=== PATIENT | male | born 1970 | race Caucasian/White ===

== ENCOUNTER 2017-01-29 10:38 | Emergency (ER) | payer BC ==
[2017-01-29 11:33] VITALS: BP 126/85
--- NOTE | 2017-01-29 11:38 | UC ---
HPI Febrile Illness - HPI Summary HPI Summary: 46 YEAR OLD MALE PRESENTS WITH COMPLAINS OF FEVER. - History of Current Complaint Chief Complaint: UCGeneralIllness Time Seen by Provider: 01/29/17 11:36 Onset/Duration: Started Days Ago - 3 Timing: Intermittent Initial Severity: Mild Current Severity: Mild - Allergy/Home Medications Allergies/Adverse Reactions: Allergies Allergy/AdvReac Type Severity Reaction Status Date / Time No Known Allergies Allergy Verified 01/29/17 11:33 Home Medications: Home Medications Ibuprofen [Advil] 600 mg PO ONCE PRN 01/29/17 [History Confirmed 01/29/17] PMH/Surg Hx/FS Hx/Imm Hx - Surgical History Surgery Procedure, Year, and Place: Hand surgery Infectious Disease History: No Infectious Disease History: Denies: History Other Infectious Disease, Traveled Outside the [place] in Last 30 Days - Social History Alcohol Use: Rare Substance Use Type: Reports: Marijuana Substance Use Comment - Amount & Last Used: hx of opiod abuse Smoking Status (MU): Never Smoked Tobacco Review of Systems Constitutional: Negative Skin: Negative Eyes: Negative ENT: Negative Respiratory: Negative Cardiovascular: Negative Gastrointestinal: Negative Genitourinary: Negative Motor: Negative Neurovascular: Negative Musculoskeletal: Negative Neurological: Negative Psychological: Negative All Other Systems Reviewed And Are Negative: Yes Physical Exam Triage Information Reviewed: Yes Vital Signs: Initial Vital Signs Temp 37.3 C 01/29/17 11:28 Pulse 93 01/29/17 11:28 Resp 16 01/29/17 11:28 BP 126/85 01/29/17 11:28 Pulse Ox 99 01/29/17 11:28 Eye Exam: Normal ENT Exam: Normal Dental Exam: Normal Neck exam: Normal Neck: Positive: 1 Respiratory Exam: Normal Cardiovascular Exam: Normal Abdominal Exam: Normal Musculoskeletal Exam: Normal Neurological Exam: Normal Psychological Exam: Normal Skin Exam: Normal Course/Dx - Diagnoses Clinic Provider Diagnoses: FEVER Discharge - Discharge Plan Condition: Stable Disposition: HOME Patient Education Materials: Fever in Adults (ED) Referrals: No Primary Care Phys,NOPCP [Primary Care Provider] -
== END 2017-01-29 12:04 | disposition home or self-care (01) ==
LOC: UCEAST 10:38
DX: R50.9 Fever, unspecified (principal)
CPT/HCPCS: 99211; G0463

== ENCOUNTER 2017-01-29 12:25 | Emergency (ER) | payer BC ==
[2017-01-29] MEDS ORDERED: NS 0.9% 1000 ML* 2,000 ML IV ONE (14:35)
--- NOTE | 2017-01-29 15:03 | RAD ---
INDICATION: Fever. Chills. Pneumonia. COMPARISON: None TECHNIQUE: PA and lateral dual-energy views were obtained. FINDINGS: Bones/Soft Tissues: There are no acute bony findings. Cardiomediastinal: The cardiomediastinal silhouette is normal. Lungs: There are no infiltrates. Pleura: There are no pleural effusions. Other: None IMPRESSION: NORMAL CHEST.
[2017-01-29 15:14] LABS: Hematocrit 44 % (42-52); Hemoglobin 14.9 g/dl (14.0-18.0); Mean Corpuscular HGB Conc 34 g/dl (31-36); Mean Corpuscular Hemoglobin 30 pg (27-31); Mean Corpuscular Volume 88 fL (80-94); Mean Platelet Volume 10 um3 (7.4-10.4); Red Blood Count 4.97 10^6/ul (4.0-5.4); Red Cell Distribution Width 13 % (10.5-15); White Blood Count 4.8 10^3/ul (3.5-10.8)
[2017-01-29 15:31] LABS: BUN/Creatinine Ratio 11.7 (8-20); C Reactive Protein 77.76 mg/L (< 5.00); Calcium 9.3 mg/dL (8.6-10.3); EGFR Non-African American 77.7 (>60); Globulin 3.3 g/dL (2-4); Total Bilirubin 1.3 mg/dL (0.2-1.0); Total Protein 7.3 g/dL (6.4-8.9)
[2017-01-29 16:09] LABS: Erythrocyte Sed Rate 27 mm/Hr (0-14)
[2017-01-29 16:21] LABS: Urine Bilirubin Negative (Negative); Urine Glucose Negative (Negative); Urine Nitrite Negative (Negative)
[2017-01-29] MEDS ORDERED: DOXYcycline CAP(*) 100 MG PO ONE (17:10)
[2017-01-29 17:36] VITALS: BP 127/68
--- NOTE | 2017-01-29 21:47 | ED ---
Teresa Tinajero Alfonso, scribed for Van Almendarez MD on 01/29/17 at 1443 . Complex/Multi-Sys Presentation - HPI Summary HPI Summary: This patient is a 46 year old male presenting to [facility] c/o febrile illness since 3 days ago. He reports spending time outdoors and in the garden this last week. Sx aggravated by nothing and alleviated by Advil. He reports fatigue, insomnia, diaphoresis, chills, nausea, loss of appetite, arthralgia, headache secondary to cough, increased urinary frequency. He denies a rash, abdominal pain, flank pain, testicular pain, nasal congestion, sore throat, and sinus pressure. - History Of Current Complaint Chief Complaint: EDFever Time Seen by Provider: 01/29/17 14:23 Hx Obtained From: Patient, Family/Plant Assigner - Onset/Duration: Sudden Onset, Lasting Days - 3 days, Still Present Timing: Constant Severity Currently: Moderate Severity Initially: Moderate Aggravating Factor(s): Nothing Alleviating Factor(s): Advil Associated Signs And Symptoms: Positive: Fever, Other - Positive fatigue, insomnia, diaphoresis, chills, nausea, loss of appetite, arthralgia, headache secondary to cough, increased urinary frequency; Negative rash, abdominal pain, flank pain, testicular pain, nasal congestion, sore throat, and sinus pressure. - Allergies/Home Medications Allergies/Adverse Reactions: Allergies Allergy/AdvReac Type Severity Reaction Status Date / Time No Known Allergies Allergy Verified 01/29/17 11:33 PMH/Surg Hx/FS Hx/Imm Hx Opthamlomology History: Denies: Hx Legally Blind EENT History: Denies: Hx Deafness - Surgical History Surgery Procedure, Year, and Place: Hand surgery Infectious Disease History: No Infectious Disease History: Denies: History Other Infectious Disease, Traveled Outside the [place] in Last 30 Days - Family History Known Family History: Positive: Cardiac Disease, Other - Brain tumors - Social History Alcohol Use: Rare Substance Use Type: Reports: Marijuana Substance Use Comment - Amount & Last Used: hx of opiod abuse Smoking Status (MU): Former Smoker Review of Systems Positive: Fever, Chills, Fatigue, Skin Diaphoresis Positive: Other - Negative nasal congestion, and sinus pressure. Negative: Sore Throat Positive: Cough Positive: Nausea. Negative: Abdominal Pain Positive: frequency - Increased, other - Negative testicular pain, . Negative: flank pain Positive: Arthralgia Negative: Rash Neurological: Other - Positive loss of appetite, insomnia, Positive: Headache - secondary to cough Positive: Other All Other Systems Reviewed And Are Negative: Yes Physical Exam - Summary Physical Exam Summary: The patient is well-nourished in no acute distress and in no acute pain. The skin is warm and dry and skin color reflects adequate perfusion. Diaphoretic. Obese. HEENT: The head is normocephalic and atraumatic. The pupils are equal and reactive. The conjunctivae are clear and without drainage. Nares are patent and without drainage. Mouth reveals moist mucous membranes and the throat is without erythema and exudate. The external ears are intact. The ear canals are patent and without drainage. The tympanic membranes are intact. Neck is supple with full range of motion and non-tender. There are no carotid bruits. There is no neck vein distension. No nuchal rigidity. Respiratory: Chest is non-tender. Lungs are clear to auscultation and breath sounds are symmetrical and equal. Cardiovascular: Heart is tachycardic. There is no murmur or rub auscultated. There is no peripheral edema and pulses are symmetrical and equal. Abdomen: The abdomen is soft and non-tender. There are normal bowel sounds heard in all four quadrants and there is no organomegaly palpated. Musculoskeletal: There is no back pain noted. Extremities are non-tender with full range of motion. There is good capillary refill. There is no peripheral edema or calf tenderness elicited. Neurological: Patient is alert and oriented to person, place and time. The patient has symmetrical motor strength in all four extremities. Cranial nerves are grossly intact. Deep tendon reflexes are symmetrical and equal in all four extremities. Psychiatric: The patient has an appropriate affect and does not exhibit any anxiety or depression. Triage Information Reviewed: Yes Vital Signs On Initial Exam: Initial Vitals Temp Pulse Resp BP Pulse Ox 98.7 F 101 17 116/72 99 01/29/17 12:29 01/29/17 12:29 01/29/17 12:29 01/29/17 12:29 01/29/17 12:29 Vital Signs Reviewed: Yes - Emily Coma Scale Coma Scale Total: 15 Diagnostics - Vital Signs Vital Signs Temp Pulse Resp BP Pulse Ox 01/29/17 14:18 95 97 01/29/17 14:16 154/87 01/29/17 13:42 98.7 F 111 20 128/79 97 01/29/17 12:29 98.7 F 101 17 116/72 99 - Laboratory Lab Results: Lab Results 01/29/17 01/29/17 01/29/17 Range/Units 15:00 15:00 15:00 WBC 4.8 (3.5-10.8) 10^3/ul RBC 4.97 (4.0-5.4) 10^6/ul Hgb 14.9 (14.0-18.0) g/dl Hct 44 (42-52) % MCV 88 (80-94) fL MCH 30 (27-31) pg MCHC 34 (31-36) g/dl RDW 13 (10.5-15) % Plt Count 119 L (150-450) 10^3/ul MPV 10 (7.4-10.4) um3 Neut % (Auto) 80.3 (38-83) % Lymph % (Auto) 8.0 L (25-47) % [place] % (Auto) 11.3 H (1-9) % Eos % (Auto) 0 (0-6) % Baso % (Auto) 0.4 (0-2) % Absolute Neuts (auto) 3.9 (1.5-7.7) 10^3/ul Absolute Lymphs (auto) 0.4 L (1.0-4.8) 10^3/ul Absolute Monos (auto) 0.5 (0-0.8) 10^3/ul Absolute Eos (auto) 0 (0-0.6) 10^3/ul Absolute Basos (auto) 0 (0-0.2) 10^3/ul Absolute Nucleated RBC 0.01 10^3/ul Nucleated RBC % 0.3 ESR 27 H (0-14) mm/Hr INR (Anticoag Therapy) 1.03 (0.89-1.11) APTT 29.9 (26.0-36.3) seconds Sodium 131 L (133-145) mmol/L Potassium 4.0 (3.5-5.0) mmol/L Chloride 101 (101-111) mmol/L Carbon Dioxide 23 (22-32) mmol/L Anion Gap 7 (2-11) mmol/L BUN 12 (6-24) mg/dL Creatinine 1.03 (0.67-1.17) mg/dL Est GFR ( Amer) 100.0 (>60) Est GFR (Non-Af Amer) 77.7 (>60) BUN/Creatinine Ratio 11.7 (8-20) Glucose 121 H (70-100) mg/dL Lactic Acid (0.5-2.0) mmol/L Calcium 9.3 (8.6-10.3) mg/dL Total Bilirubin 1.30 H (0.2-1.0) mg/dL AST 28 (13-39) U/L ALT 35 (7-52) U/L Alkaline Phosphatase 76 (34-104) U/L Total Creatine Kinase 66 (10-223) U/L Troponin I 0.00 (<0.04) ng/mL C-Reactive Protein 77.76 H (< 5.00) mg/L Total Protein 7.3 (6.4-8.9) g/dL Albumin 4.0 (3.2-5.2) g/dL Globulin 3.3 (2-4) g/dL Albumin/Globulin Ratio 1.2 (1-3) Urine Color Urine Appearance Urine pH (5-9) Ur Specific [place] (1.010-1.030) Urine Protein (Negative) Urine Ketones (Negative) Urine Blood (Negative) Urine Nitrate (Negative) Urine Bilirubin (Negative) Urine Urobilinogen (Negative) Ur Leukocyte Esterase (Negative) Urine Glucose (Negative) 01/29/17 01/29/17 Range/Units 15:00 16:13 WBC (3.5-10.8) 10^3/ul RBC (4.0-5.4) 10^6/ul Hgb (14.0-18.0) g/dl Hct (42-52) % MCV (80-94) fL MCH (27-31) pg MCHC (31-36) g/dl RDW (10.5-15) % Plt Count (150-450) 10^3/ul MPV (7.4-10.4) um3 Neut % (Auto) (38-83) % Lymph % (Auto) (25-47) % [place] % (Auto) (1-9) % Eos % (Auto) (0-6) % Baso % (Auto) (0-2) % Absolute Neuts (auto) (1.5-7.7) 10^3/ul Absolute Lymphs (auto) (1.0-4.8) 10^3/ul Absolute Monos (auto) (0-0.8) 10^3/ul Absolute Eos (auto) (0-0.6) 10^3/ul Absolute Basos (auto) (0-0.2) 10^3/ul Absolute Nucleated RBC 10^3/ul Nucleated RBC % ESR (0-14) mm/Hr INR (Anticoag Therapy) (0.89-1.11) APTT (26.0-36.3) seconds Sodium (133-145) mmol/L Potassium (3.5-5.0) mmol/L Chloride (101-111) mmol/L Carbon Dioxide (22-32) mmol/L Anion Gap (2-11) mmol/L BUN (6-24) mg/dL Creatinine (0.67-1.17) mg/dL Est GFR ( Amer) (>60) Est GFR (Non-Af Amer) (>60) BUN/Creatinine Ratio (8-20) Glucose (70-100) mg/dL Lactic Acid 0.9 (0.5-2.0) mmol/L Calcium (8.6-10.3) mg/dL Total Bilirubin (0.2-1.0) mg/dL AST (13-39) U/L ALT (7-52) U/L Alkaline Phosphatase (34-104) U/L Total Creatine Kinase (10-223) U/L Troponin I (<0.04) ng/mL C-Reactive Protein (< 5.00) mg/L Total Protein (6.4-8.9) g/dL Albumin (3.2-5.2) g/dL Globulin (2-4) g/dL Albumin/Globulin Ratio (1-3) Urine Color Yellow Urine Appearance Clear Urine pH 5.0 (5-9) Ur Specific Rector 1.009 L (1.010-1.030) Urine Protein Negative (Negative) Urine Ketones Negative (Negative) Urine Blood Negative (Negative) Urine Nitrate Negative (Negative) Urine Bilirubin Negative (Negative) Urine Urobilinogen Negative (Negative) Ur Leukocyte Esterase Negative (Negative) Urine Glucose Negative (Negative) Result Diagrams: 01/29/17 15:00 01/29/17 15:00 Lab Statement: Any lab studies that have been ordered have been reviewed, and results considered in the medical decision making process. - Radiology CXR Radiology Interpretation Completed By: Radiologist - Normal Chest - EKG 1436 Cardiac Rate: NL - BPM 95 EKG Rhythm: Sinus Rhythm - No ST elevation and Normal axis Re-Evaluation - Re-Evaluation First Eval Re-Evaluation Time: 17:01 Comment: Discussed labs with patient. They understand and agree with discharge. Complex Multi-Symp Course/Dx Course Of Treatment: A 46 year old male presents with fever, chills, and diaphoresis. He states concern for an infection. He has recent exposure to the outdoors, however does not recall a definitive tick bit. Routine lab studies show normal findings. CXR reveals a normal chest. Patient feels better after IV fluid. He will be treated empirically for Lyme. Sent home with doxycycline and follow up with Dr. Fields and Dr. Cody. - Diagnoses Differential Diagnoses/HQI/PQRI: Other - uti, pneumonia, lyme's disease, uri, viral syndrome Provider Diagnoses: Acute Lyme disease Discharge - Discharge Plan Condition: Stable Disposition: HOME Prescriptions: DOXYcycline CAP(*) [DOXYcycline 100MG CAP(*)] 100 mg PO BID #28 cap Patient Education Materials: Lyme Disease (ED) Referrals: Arley Cody MD [Medical Doctor] - 1 Week Mkehi Fields MD [Primary Care Provider] - 1 Week The documentation as recorded by the Teresa castro Alfonso accurately reflects the service I personally performed and the decisions made by me, Van Almendarez MD.
== END 2017-01-29 17:35 | disposition home or self-care (01) ==
LOC: ED 12:25
DX: A69.20 Lyme disease, unspecified (principal); Z87.891 Personal history of nicotine dependence
CPT/HCPCS: 36415; 71020; 80053; 81003; 82550; 83605; 84484; 85025; 85610; 85652; 85730; 86140; 86618; 87040; 93005; 96360; 99283; A9270-GY